=== PATIENT | female | born 1990 | race Caucasian/White ===

== ENCOUNTER 2016-10-07 09:33 | Emergency (ER) | payer OTHER ==
[~2016-10-07] VITALS: Ht 162.6 cm; Wt 71.2 kg
[2016-10-07] MEDS ORDERED: ACYC200CA PO (10:30)
[2016-10-07] MEDS ORDERED: ZOVI800T PO (10:36)
[2016-10-07 10:39] VITALS: BP 121/84
== END 2016-10-07 10:40 | disposition home or self-care (01) ==
LOC: M ED 09:55
DX: B00.1 Herpesviral vesicular dermatitis (principal); Z88.1 Allergy status to other antibiotic agents

== ENCOUNTER → 2016-12-27 | Outpatient (REF) | payer OTHER ==
[~2016-12-27] MED LIST: ACYC200CA PO; ZOVI800T PO
== END ==
LOC: M LAB REF 13:20
PROVIDERS: ATTEND Physician Assistant Medical
DX: Z12.4 Encounter for screening for malignant neoplasm of cervix (principal)

== ENCOUNTER → 2017-02-15 | Outpatient (CLI) | payer OTHER ==
[2017-02-15 17:39] LABS: BASO % 0.4 % (0.0-1.0); EOS # 0.2 10^3/uL (0.0-0.50); EOS % 2.4 % (0.0-3.0); IMMATURE GRANULOCYTE % 0.4 % (0-0); LYMPH # 2.1 10^3/uL (1.5-6.5); LYMPH % 22.6 % (24.0-44.0); MEAN CORPUSCULAR HEMOGLOBIN 31.6 pg (27.0-33.0); MEAN CORPUSCULAR HGB CONC 35.4 g/dl (32.0-36.5); MEAN CORPUSCULAR VOLUME 89.3 fl (80.0-96.0); MONO # 0.5 10^3/uL (0.0-0.8); MONO % 5.7 % (0.0-5.0); NEUTROPHILS # 6.4 10^3/uL (1.8-7.7); NEUTROPHILS % 68.5 % (36.0-66.0); PLATELET COUNT, AUTOMATED 218 10^3/uL (150-450); RED CELL DISTRIBUTION WIDTH 11.8 % (11.5-14.5); WHITE BLOOD COUNT 9.4 10^3/uL (4.0-10.0)
[2017-02-16 10:41] LABS: HBsAg Prenatal NEGATIVE (NEGATIVE)
== END ==
LOC: M SMT 14:10
PROVIDERS: ATTEND Advanced Practice Midwife
DX: Z36.89 Encounter for other specified antenatal screening (principal); Z3A.01 Less than 8 weeks gestation of pregnancy

== ENCOUNTER → 2017-04-29 | Outpatient (CLI) | payer OTHER | LOC: M RAD 08:59 | DX: Z36.89 Encounter for other specified antenatal screening (principal); Z3A.19 19 weeks gestation of pregnancy | CPT/HCPCS: 76817 ==

== ENCOUNTER → 2017-06-14 | Outpatient (CLI) | payer OTHER | LOC: M RAD 08:30 | DX: Z36.89 Encounter for other specified antenatal screening (principal); Z3A.25 25 weeks gestation of pregnancy | CPT/HCPCS: 76817 ==

== ENCOUNTER → 2017-06-22 | Outpatient (CLI) | payer OTHER ==
[2017-06-22 13:55] LABS: HEMOGLOBIN 13.1 g/dl (12.0-16.0); MEAN CORPUSCULAR HEMOGLOBIN 32.7 pg (27.0-33.0); MEAN CORPUSCULAR HGB CONC 35.4 g/dl (32.0-36.5); MEAN CORPUSCULAR VOLUME 92.3 fl (80.0-96.0); PLATELET COUNT, AUTOMATED 210 10^3/uL (150-450); RED BLOOD COUNT 4.01 10^6/uL (4.00-5.40); RED CELL DISTRIBUTION WIDTH 12.3 % (11.5-14.5); WHITE BLOOD COUNT 8.5 10^3/uL (4.0-10.0)
[2017-06-22 14:14] LABS: GLUCOSE CHALLENGE TEST 1 HOUR 69 MG/DL (LESS THAN 140)
[2017-06-23 08:48] LABS: TYPE AND SCREEN 1 1
== END ==
LOC: M SMT 10:52
PROVIDERS: Emergency Medicine Pediatric Emergency Medicine
DX: Z34.82 Encounter for supervision of other normal pregnancy, second trimester (principal)

== ENCOUNTER → 2017-09-02 | Outpatient (REF) | payer OTHER | LOC: M LAB REF 13:59 | DX: Z34.83 Encounter for supervision of other normal pregnancy, third trimester (principal) | CPT/HCPCS: 87081 ==

== ENCOUNTER 2017-09-22 00:18 | Inpatient (IN) | payer OTHER ==
[2017-09-22] MEDS: miSOPROStol 50 MCG 1/2 TAB (S0191) PO (03:30)
[2017-09-22 06:47] LABS: HEMATOCRIT 32.6 % (36.0-47.0); HEMOGLOBIN 11.5 g/dl (12.0-15.5); MEAN CORPUSCULAR HEMOGLOBIN 32.4 pg (27.0-33.0); MEAN CORPUSCULAR HGB CONC 35.3 g/dl (32.0-36.5); MEAN CORPUSCULAR VOLUME 91.8 fl (80.0-96.0); PLATELET COUNT, AUTOMATED 158 10^3/uL (150-450); RED BLOOD COUNT 3.55 10^6/uL (4.00-5.40); RED CELL DISTRIBUTION WIDTH 12.8 % (11.5-14.5); WHITE BLOOD COUNT 11.1 10^3/uL (4.0-10.0)
[2017-09-22] MEDS: LR 1,000 ML IV ×2 (15:45→22:17)
[2017-09-22] MEDS: OXYTOCIN DRIP 30 UNITS in APPROPRIATE DILUENT 1 EA IV (15:49)
[2017-09-22] MEDS ORDERED: FENTANYL 2MCG/ML ROPIVACAINE 0.2% IN 0.9% NACL 200ML IVBAG As Ordered (22:37)
[2017-09-22] MEDS ORDERED: ePHEDrine SULFATE 25 MG/5 ML(5MG/ML) SYRINGE IV (23:45)
[2017-09-22] MEDS ORDERED: LACTATED RINGER'S 1000 ML IV (23:45)
[2017-09-22] MEDS ORDERED: NALOXONE INJ 0.4 MG/1 ML VIAL (J2310) IV (23:45)
[2017-09-22] MEDS ORDERED: FENTANYL/ROPIVACAINE/NACL BAG 200 ML EPIDURAL (23:45)
[2017-09-22] MEDS ORDERED: ONDANSETRON 4MG/2ML VIAL (J2405) IV (23:45)
[2017-09-22] MEDS ORDERED: EPIDURAL/PCA KEYS XX (23:45)
[2017-09-22] MEDS ORDERED: EPIDURAL COMMENT XX (23:45)
[2017-09-22] MEDS ORDERED: diphenhydrAMINE INJ 50MG/ML VIAL (J1200) IV (23:45)
[2017-09-22] MEDS ORDERED: REFRIGERATOR IV KEYS XX (23:45)
[2017-09-23] MEDS ORDERED: ceFAZolin 2 GM/D5W 50 ML IV BAG (J0690 PER 500MG) As Ordered (01:10)
[2017-09-23] MEDS ORDERED: BICITRA 30ML SOLN UDC As Ordered (01:10)
[2017-09-23] MEDS ORDERED: MORPHINE PRES-FREE INJ 10 MG/10 ML VIAL (J2274) As Ordered (01:26)
[2017-09-23] MEDS ORDERED: OXYTOCIN INJ 10 UNITS/ML VIAL (J2590) As Ordered ×2 (01:26)
[2017-09-23] MEDS ORDERED: LIDOCAINE 2% W/EPIN INJ 20ML **PRES FREE As Ordered (01:30)
[2017-09-23] MEDS: BICITRA 30ML SOLN UDC PO (01:45)
[2017-09-23] MEDS ORDERED: PHENYLephrine HCL 500 MCG/5 ML (100MCG/ML) SYRINGE (J2370) As Ordered (01:53)
[2017-09-23] MEDS ORDERED: ePHEDrine SULFATE 25 MG/5 ML(5MG/ML) SYRINGE As Ordered (01:53)
[2017-09-23] MEDS ORDERED: KETOROLAC 60 MG/2 ML VIAL (J1885) As Ordered (01:59)
[2017-09-23] MEDS ORDERED: fentaNYL 100 MCG/2 ML INJECTION (J3010) As Ordered (02:06)
[2017-09-23] MEDS ORDERED: ONDANSETRON 4MG/2ML VIAL (J2405) As Ordered (02:09)
[2017-09-23] MEDS ORDERED: NALOXONE INJ 0.4 MG/1 ML VIAL (J2310) IV ×2 (02:15)
[2017-09-23] MEDS ORDERED: NALBUPHINE HCL 10 MG/ML AMP (J2300) IV ×2 (02:15→03:00)
[2017-09-23] MEDS ORDERED: ONDANSETRON 4MG/2ML VIAL (J2405) IV ×3 (02:15→03:00)
[2017-09-23] MEDS ORDERED: MEASLES,MUMPS,RUBELLA VACCINE INJ (MMR-II) (90707) SC (02:45)
[2017-09-23] MEDS ORDERED: DOCUSATE SODIUM 100 MG CAP PO (02:45)
[2017-09-23] MEDS ORDERED: PERCOCET 5MG/325MG TAB PO ×2 (02:45)
[2017-09-23] MEDS ORDERED: MEPERIDINE INJ 25 MG/ML VIAL (J2175) IV (03:00)
[2017-09-23] MEDS ORDERED: fentaNYL 100 MCG/2 ML INJECTION (J3010) IV (03:00)
[2017-09-23] MEDS: METOCLOPRAMIDE INJ 10MG/2ML VIAL (J2765) IV ×2 (04:46→10:19)
[2017-09-23] MEDS: GENTAMICIN 80 MG in APPROPRIATE DILUENT 1 EA IV (06:10)
[2017-09-23] MEDS: CLINDAMYCIN 300 MG in APPROPRIATE DILUENT 1 EA IV (06:10)
[2017-09-23] MEDS: LR 1,000 ML IV ×2 (06:11→10:39)
[2017-09-23] MEDS: KETOROLAC 30 MG/ML VIAL (J1885) IV ×3 (07:44→19:56)
[2017-09-23] MEDS: PRENATAL VITAMINS CHEWABLE TABLET PO (09:00)
[2017-09-23 16:53] LABS: FETAL SCREEN PROF. 1 1
[2017-09-23] MEDS: RHOGAM 300 MCG (1500 IU) INJ (J2790) IM (17:04)
[2017-09-24] MEDS: KETOROLAC 30 MG/ML VIAL (J1885) IV (02:45)
[2017-09-24 06:55] LABS: HEMATOCRIT 26.6 % (36.0-47.0); HEMOGLOBIN 9.3 g/dl (12.0-15.5); MEAN CORPUSCULAR HEMOGLOBIN 32.3 pg (27.0-33.0); MEAN CORPUSCULAR VOLUME 92.4 fl (80.0-96.0); PLATELET COUNT, AUTOMATED 131 10^3/uL (150-450); RED BLOOD COUNT 2.88 10^6/uL (4.00-5.40); WHITE BLOOD COUNT 7.7 10^3/uL (4.0-10.0)
[2017-09-24] MEDS: PRENATAL VITAMINS CHEWABLE TABLET PO (09:35)
[2017-09-24] MEDS: IBUPROFEN 800 MG TAB PO ×2 (09:35→18:06)
[2017-09-25] MEDS: IBUPROFEN 800 MG TAB PO ×2 (02:17→09:21)
[2017-09-25] MEDS: PRENATAL VITAMINS CHEWABLE TABLET PO (09:20)
== END 2017-09-25 14:30 | disposition home or self-care (01) | DRG 766 ==
LOC: M LDO 00:18 → M OBS 09-23 04:16 → M LDI 03:11
PROVIDERS: Obstetrics & Gynecology
PROC: 10D00Z1 Extraction of Products of Conception, Low, Open Approach (ICD-10-PCS; principal; 2017-09-23 01:46)
DX: O42.02 Full-term premature rupture of membranes, onset of labor within 24 hours of rupture (principal); Z3A.39 39 weeks gestation of pregnancy; O62.0 Primary inadequate contractions; Z37.0 Single live birth